=== PATIENT | male | born 2000 | race African-American/Black ===

== ENCOUNTER 2020-04-29 14:51 | Inpatient (IN) | payer OTHER, SELFPAY ==
[2020-04-29] VITALS (7 sets, daily range): BP systolic 137–146; BP diastolic 76–87; PULSE 86–102; RESP 16–20; TEMP 36.7–37.4; O2SAT 99–100; BMI 32.5
--- NOTE | ~2020-04-29 | XR_ITS ---
EXAMINATION: XR femur LT min 2V DATE: 04/29/2020 16:34 INDICATION: Left thigh wound and erythema and edema. TECHNIQUE: 2 views of left femur on 4 radiographs were obtained. COMPARISON: None. FINDINGS: Bone alignment is normal. No fracture. Joint spaces are well maintained. IMPRESSION: 1. Normal left femur. Reviewed, dictated and finalized at location B. IMPRESSION: 1. Normal left femur.
[2020-04-29] MEDS: TETANUS,DIPHTHERIA,AC PERTUSSIS ADULT (0.5 ML) BOOSTRIX IM (16:16)
--- NOTE | 2020-04-29 16:41 | ED.SKABFB ---
HPI - Skin/Abscess/Foreign Bdy General Chief complaint: Skin/Abscess/Foreign Body <CHAPINCITO Galindo Last Filed: 04/29/20 18:56> Stated complaint: bite to leg <CHAPINCITO Galindo Last Filed: 04/29/20 18:56> Time Seen by Provider: 04/29/20 15:51 <CHAPINCITO Galindo Last Filed: 04/29/20 18:56> Source: patient <CHAPINCITO Galindo Last Filed: 04/29/20 18:56> Mode of arrival: ambulatory <CHAPINCITO Galindo Last Filed: 04/29/20 18:56> Limitations: no limitations <CHAPINCITO Galindo Last Filed: 04/29/20 18:56> History of Present Illness HPI narrative: This is a 20 year old male that presents to the ER for left thigh wound for 4 days. Reports he noted a possible bite to the area on Saturday. Reports he went to the urgent care and was started on Doxycycline. Has been taking this as prescribed with little relief. Reports the area of redness continues to worsen to the thigh. He is unsure of his last tetanus vaccine. Also reports fevers. <CHAPINCITO Galindo Last Filed: 04/29/20 18:56> Related Data Home medications: Home Medications Medication Instructions Recorded Confirmed doxycycline hyclate 04/29/20 triamcinolone acetonide TOPICAL 04/29/20 <CHAPINCITO Galindo Last Filed: 04/29/20 18:56> Allergies/Adverse reactions: Allergies Allergy/AdvReac Type Severity Reaction Status Date / Time No Known Allergies Allergy Verified 04/29/20 16:20 <CHAPINCITO Galindo Last Filed: 04/29/20 18:56> Review of Systems Review of Systems: Narrative: CONSTITUTIONAL: Reports fever SKIN: Reports erythema and edema <CHAPINCITO Galindo Last Filed: 04/29/20 18:56> All systems reviewed & are unremarkable except as noted in HPI and below <CHAPINCITO Galindo Last Filed: 04/29/20 18:56> [facility] Past Medical History Medical History: Medical History (Updated 04/29/20 @ 18:56 by Emily Parekh PA-C) No active medical problems <Emily Parekh PA-C - Last Filed: 04/29/20 18:56> Social History Social History: Social History (Updated 04/29/20 @ 16:46 by Emily Parekh PA-C) Substance use: never Gender identity (if verbalized by the patient): Male <Emily Parekh PA-C - Last Filed: 04/29/20 18:56> Exam Narrative: Exam Narrative: GENERAL: Well-appearing, well-nourished, and in no acute distress. HEAD: Normocephalic, atraumatic. EYES: EOMI. EXTREMITIES: Normal range of motion. Left inner thigh with large area of erythema and edema with small central area of ecchymosis. No fluctuance to suggest abscess SKIN: Warm, dry, no rash. NEURO: No focal deficits. Alert and oriented x3. PSYCH: Normal mood and affect <Emily Parekh PA-C - Last Filed: 04/29/20 18:56> Course E COMMERCE MANAGER/PA Physician Supervision For this encounter, I have reviewed the PA documentation, treatment plan and medical decision making: And I have had [id number] time with the patient. On exam patient has large area of erythema over the left thigh. Had extensive conversation with patient and family regarding for admission all questions answered. Patient in agreement at this time <Declan Luz DO - Last Filed: 04/29/20 18:21> Consultations Consultation #1: Spoke with hospitalist about patient and work-up who accepts admission <Emily Parekh PA-C - Last Filed: 04/29/20 18:56> Date: 04/29/20 <Emily Parekh PA-C - Last Filed: 04/29/20 18:56> Time: 18:56 <Emily Parekh PA-C - Last Filed: 04/29/20 18:56> Vital Signs Vital signs: Vital Signs Temperature 99.2 F 04/29/20 15:11 Pulse Rate 92 04/29/20 15:11 Respiratory Rate 16 04/29/20 15:11 Blood Pressure 146/85 H 04/29/20 15:11 Pulse Oximetry 100 04/29/20 15:11 Temperature 99.4 F 04/29/20 17:54 Pulse Rate 102 H 04/29/20 17:54 Respiratory Rate 20 04/29/20 17:54 Blood Pressure 143/78 H 04/29/20 17:54 Pulse Oximetry 100 04/29
[2020-04-29 16:49] LABS: Basophils Absolute Auto 0.1 K/mm3 (0.0-0.1); Basophils Percent Auto 0.4 % (0.2-1.2); Eosinophils Absolute Auto 0.3 K/mm3 (0-0.3); Eosinophils Percent Auto 2.4 % (0-4.4); Hematocrit 42.4 % (42.0-52.0); Immature Granulocyte Absolute 0.03 K/mm3 (0.00-0.031); Immature Granulocyte Percent A 0.3 % (0-0.5); Lymphocytes Percent Auto 15.9 % (18.3-44.2); Mean Corpuscular Hemoglobin 29.7 pg (26-34); Mean Corpuscular Volume 89.8 fl (80-100); Mean Platelet Volume 9.4 fl (7.4-10.4); Monocytes Absolute Auto 1.1 K/mm3 (0.1-0.6); Monocytes Percent Auto 9.4 % (2.6-8.5); Neutrophils Absolute Auto 8.1 K/mm3 (1.3-6.7); Neutrophils Percent Auto 71.6 % (45.5-73.1); Platelet Count Result 308 k/mm3 (150-375); Red Blood Count 4.72 M/mm3 (4.6-6.20); Red Cell Distribution Width 11.9 % (11.5-14.5); White Blood Count 11.3 K/mm3 (4.5-10.0)
[2020-04-29 17:03] LABS: Anion Gap 7 mmol/L (8-16); Blood Urea Nitrogen 11 mg/dL (9-20); CRP 8.1 mg/dL (<1.0); Calcium 9.3 mg/dL (8.4-10.2); Carbon Dioxide 29 mmol/L (22-30); Chloride 100 mmol/L (98-107); Estimated CRCL calculation 161 ml/min; Estimated Glomerular Filt Rate > 60; Glucose 93 mg/dL (75-110); Potassium 4.3 mmol/L (3.4-5.0); Sodium 136 mmol/L (137-145)
[2020-04-29 17:15] LABS: Erythrocyte Sedimentation Rate 29 mm/hr (0-20)
--- NOTE | 2020-04-29 18:02 | PC.NURSE ---
[id number] area of redness with 2x3cm black area noted in the middle of the lesion. Wound area is firm, tender, and hot to touch. Wound outlined at this time.
[2020-04-29 18:07] LABS: Lactic Acid Reflex 0.9 mmol/L (0.7-2.1)
[2020-04-29] MEDS: IBUPROFEN 600 MG TABLET PO (18:26)
--- NOTE | 2020-04-29 20:20 | ADMGEN ---
This patient, Kaleb Almaguer, was admitted to 3 [facility] Surg Room 300-01. Patient/family oriented to hospital policies and general routines including ID bracelet, bed and alarms, visiting hours, pain management, procedures, bathroom and other care routines, personal items, smoking policy, room service/diet, and visiting hours. Valuables list has been completed. Information on how to activate the Rapid Response Team has been discussed. Patient/Family are encouraged to report perceived risks to care and to ask questions if they do not understand what they are told or what they should do.
[2020-04-30 05:54] VITALS: BP 133/77; PULSE 83; RESP 20; TEMP 36.6; O2SAT 100
[2020-04-30 08:00] VITALS: PULSE 83; RESP 20; O2SAT 100
[2020-04-30 09:00] LABS: Basophils Absolute Auto 0.1 K/mm3 (0.0-0.1); Basophils Percent Auto 0.5 % (0.2-1.2); Eosinophils Absolute Auto 0.3 K/mm3 (0-0.3); Eosinophils Percent Auto 2.4 % (0-4.4); Hematocrit 39.7 % (42.0-52.0); Hemoglobin 12.9 g/dL (14.0-18.0); Immature Granulocyte Absolute 0.07 K/mm3 (0.00-0.031); Immature Granulocyte Percent A 0.6 % (0-0.5); Lymphocytes Absolute Auto 1.54 K/mm3 (0.9-3.2); Mean Corpuscular HGB Conc 32.5 g/dl (32-36); Mean Corpuscular Hemoglobin 28.9 pg (26-34); Mean Platelet Volume 9.5 fl (7.4-10.4); Monocytes Absolute Auto 1.2 K/mm3 (0.1-0.6); Monocytes Percent Auto 10.1 % (2.6-8.5); Neutrophils Absolute Auto 8.7 K/mm3 (1.3-6.7); Neutrophils Percent Auto 73.4 % (45.5-73.1); Platelet Count Result 312 k/mm3 (150-375); Red Blood Count 4.46 M/mm3 (4.6-6.20); White Blood Count 11.9 K/mm3 (4.5-10.0)
[2020-04-30 09:32] LABS: CRP 12.8 mg/dL (<1.0)
[2020-04-30] MEDS: THERAPEUTIC MULTIVITAMINS/MINERALS TAB (*BKC) 1 TABLET PO (09:33)
--- NOTE | 2020-04-30 10:32 | PM.IMHP ---
H&P: HPI History of Present Illness Date/Time: 04/30/20 10:32 Chief complaint: Cellulitis Narrative: Kaleb Almaguer is a healthy 20 y.o. male with no significant past medical history who presented to the emergency department for the evaluation of a wound on his left medial thigh. He developed left lower extremity pain and noticed a dark black spot with surrounding erythema Saturday. He was evaluated at an Urgent Care on Saturday and started on doxycycline. He reports that his pain worsened and erythema continued started to expand despite antibiotic therapy. He notes that he found a small brown spider in his bed approximately one week ago. He lives in the [facility]. He denies systemic symptoms including malaise, nausea, vomiting, fevers, chills, weakness, diffuse myalgias, and lightheadedness. He denies chest pain and dyspnea. He denies diarrhea and constipation. He denies headaches. He has no other concerns. Review of Systems Review of Systems: All systems reviewed & are unremarkable except as noted in HPI and below PMFSH Past Medical History Medical History No active medical problems Family History Family History (Updated 04/30/20 @ 10:46 by Vanda Gallegos PA-C) Father Hypertension Social History Social History (Updated 04/30/20 @ 10:48 by Vanda Gallegos PA-C) Social History: Mr. Almaguer is a 20 y.o. male. He lives at home. He works at [employer]. He reports occasional social alcohol use with a 2 drinks once every 2 weeks. He denies tobacco and illicit substance use. He wishes to be a full code. He designates his mother, Genny Castaneda, as his surrogate decision maker. Smoking status: Never smoker Alcohol intake: current Drinks per week: 2 Substance use: never Living arrangements: alone Occupation/Education: occupation Gender identity (if verbalized by the patient): Male Spiritual care concerns: No Meds Home Medications and Allergies Home Medications Medication Instructions Recorded Confirmed Type doxycycline hyclate 100 mg PO Q12H 04/29/20 04/29/20 History [id number] K-lycop 1 tablet PO DAILY 04/29/20 04/30/20 History [Men's Multivitamin] triamcinolone acetonide 1 applic TOPICAL Q6-8H 04/29/20 04/29/20 History Allergies Allergy/AdvReac Type Severity Reaction Status Date / Time No Known Allergies Allergy Verified 04/29/20 16:20 Vital Signs Vital Signs - 24 hr 04/29/20 15:11 04/29/20 17:54 04/29/20 18:56 Temperature 99.2 F 99.4 F 99.4 F Pulse Rate 92 102 H Respiratory Rate 16 20 Blood Pressure 146/85 H 143/78 H Pulse Oximetry 100 100 04/29/20 19:03 04/29/20 19:54 04/29/20 20:05 Temperature 98.4 F 98.1 F 98.3 F Pulse Rate 95 91 99 Respiratory Rate 18 20 20 Blood Pressure 139/87 139/81 143/86 H Pulse Oximetry 100 99 100 04/29/20 22:00 04/30/20 05:54 Temperature 98.2 F 97.8 F Pulse Rate 86 83 Respiratory Rate 20 20 Blood Pressure 137/76 133/77 Pulse Oximetry 100 100 Exam Narrative: Exam Narrative: General: Very pleasant and cooperative, well-developed, obese 20 y.o. male lying in the semi-recumbent position in bed in no acute distress. HEENT: Normocephalic and atraumatic. Sclera anicteric. Conjunctivae and lids normal. PERRL. EOMI. Mucous membranes moist. Posterior pharynx without erythema or exudate. Neck: Supple. Cardiac: Regular rate and rhythm. S1 and S2 normal. Lungs: Lungs are clear to auscultation bilaterally. Abdomen: Bowel sounds are normoactive. Abdomen is soft, non-distended, and non-tender. Extremities: No lower extremity edema. No calf tenderness. Dorsalis pedis and posterior tibial pulses are 2+ and symmetric. Neurological: Alert. Exam is non-focal to casual conversation and he is moving all extremities well. Speech is clear. Skin: Warm and dry. 1x2cm necrotic lesion with [id number] of surrounding erythema and 9.5x7.5cm of induration. The wound is tender to touch with calor.
--- NOTE | 2020-04-30 13:07 | PM.CNGS ---
Assessment and Plan Assessment and plan (1) Spider bite: Code(s): T63.301A - Toxic effect of unspecified spider venom, accidental (unintentional), initial encounter Status: Acute Assessment and Plan: Central area of wound appears to have some ecchymosis and possible early skin necrosis. He may eventually require surgical debridement of this area. Will continue IV antibiotics at this time and reassess wound in the morning. Who be placed NPO after midnight just in case this needs to be done in the operating room. I may be able to debride the wound at the bedside to gain adequate control of the infection. (2) Cellulitis: Qualifiers: Laterality: left Site of cellulitis: extremity Site of cellulitis of extremity: lower extremity Qualified Code(s): L03.116 - Cellulitis of left lower limb Code(s): L03.90 - Cellulitis, unspecified Status: Acute Assessment and Plan: On broad-spectrum antibiotics History of Present Illness Consult details Consult date: 04/30/20 Requesting physician: Vanda Gallegos PA-C Narrative: Kaleb is a 20-year-old male who presented to the emergency department with complaints of a wound on his left inner thigh. He thinks he was bit by a spider and has had progressively worsening redness and pain in this region. Was placed on oral doxycycline about 3 or 4 days ago, he has noticed progressive worsening despite this. He was admitted yesterday through the emergency department for further treatment. He was placed on broad-spectrum IV antibiotics. He has not noticed any significant improvement since being admitted. Review of Systems Review of Systems: All systems reviewed & are unremarkable except as noted in HPI and below Constitutional: Constitutional: Reports as per HPI Eyes: Eyes: Denies change in vision ENT: Denies hearing loss, Denies neck pain and Denies sore throat Cardiovascular: Cardiovascular: Denies chest pain and Denies dyspnea Respiratory: Respiratory: Denies cough, Denies dyspnea and Denies wheezing Genitourinary: Genitourinary: Denies hematuria and Denies dysuria Musculoskeletal: Musculoskeletal: Denies arthralgias, Denies joint swelling and Denies neck pain Integumentary/Breasts: Skin/Breast: Reports as per HPI Allergic/Immunologic: Allergic/Immunologic: Denies wheezing PMFSH Past Medical History Medical History No active medical problems Family History Family History Father Hypertension Social History Social History Social History: Mr. Almaguer is a 20 y.o. male. He lives at home. He works at [employer]. He reports occasional social alcohol use with a 2 drinks once every 2 weeks. He denies tobacco and illicit substance use. He wishes to be a full code. He designates his mother, Genny Castaneda, as his surrogate decision maker. Smoking status: Never smoker Alcohol intake: current Drinks per week: 2 Substance use: never Living arrangements: alone Occupation/Education: occupation Gender identity (if verbalized by the patient): Male Spiritual care concerns: No Meds Home Medications and Allergies Home Medications Medication Instructions Recorded Confirmed Type doxycycline hyclate 100 mg PO Q12H 04/29/20 04/29/20 History [id number]-rzy-[id number]-vit K-lycop 1 tablet PO DAILY 04/29/20 04/30/20 History [Men's Multivitamin] triamcinolone acetonide 1 applic TOPICAL Q6-8H 04/29/20 04/29/20 History Allergies Allergy/AdvReac Type Severity Reaction Status Date / Time No Known Allergies Allergy Verified 04/29/20 16:20 Vital Signs Vital Signs - 24 hr 04/29/20 15:11 04/29/20 17:54 04/29/20 18:56 Temperature 37.3 C 37.4 C 37.4 C Pulse Rate 92 102 H Respiratory Rate 16 20 Blood Pressure 146/85 H 143/78 H Pulse Oximetry 100 1
[2020-04-30 14:00] VITALS: BP 136/76; PULSE 91; RESP 20; TEMP 37.1; O2SAT 100
[2020-04-30] MEDS: ENOXAPARIN 40 MG/0.4 ML SYRINGE SUB-Q (21:20)
[2020-04-30 22:00] VITALS: BP 137/70; PULSE 87; RESP 20; TEMP 36.9; O2SAT 100
[2020-05-01 06:00] VITALS: BP 125/54; PULSE 100; RESP 20; TEMP 36.7; O2SAT 100
[2020-05-01 07:04] LABS: Basophils Absolute Auto 0.1 K/mm3 (0.0-0.1); Basophils Percent Auto 0.5 % (0.2-1.2); Eosinophils Absolute Auto 0.4 K/mm3 (0-0.3); Eosinophils Percent Auto 3.1 % (0-4.4); Hematocrit 39.7 % (42.0-52.0); Immature Granulocyte Absolute 0.05 K/mm3 (0.00-0.031); Immature Granulocyte Percent A 0.4 % (0-0.5); Lymphocytes Absolute Auto 2.22 K/mm3 (0.9-3.2); Lymphocytes Percent Auto 18.3 % (18.3-44.2); Mean Corpuscular HGB Conc 32.7 g/dl (32-36); Mean Corpuscular Hemoglobin 29.1 pg (26-34); Mean Corpuscular Volume 88.8 fl (80-100); Mean Platelet Volume 9.7 fl (7.4-10.4); Monocytes Absolute Auto 1.4 K/mm3 (0.1-0.6); Monocytes Percent Auto 11.3 % (2.6-8.5); Neutrophils Absolute Auto 8.1 K/mm3 (1.3-6.7); Neutrophils Percent Auto 66.4 % (45.5-73.1); Platelet Count Result 336 k/mm3 (150-375); Red Blood Count 4.47 M/mm3 (4.6-6.20); Red Cell Distribution Width 11.8 % (11.5-14.5); White Blood Count 12.1 K/mm3 (4.5-10.0)
[2020-05-01 07:48] LABS: CRP 8.7 mg/dL (<1.0); Creatine Kinase 72 U/L (55-170)
[2020-05-01 08:00] VITALS: PULSE 100; RESP 20; O2SAT 100
[2020-05-01] MEDS: THERAPEUTIC MULTIVITAMINS/MINERALS TAB (*BKC) 1 TABLET PO (08:06)
--- NOTE | 2020-05-01 10:09 | PM.PNGS ---
Progress Note: A&P Assessment and Plan (1) Spider bite: Code(s): T63.301A - Toxic effect of unspecified spider venom, accidental (unintentional), initial encounter Status: Acute Assessment and Plan: No clear necrosis or abscess. WBC unchanged while on IV antibiotics. Will give one more day to monitor for improvement. May need to debride if redness and WBC not improving. (2) Cellulitis: Qualifiers: Laterality: left Site of cellulitis: extremity Site of cellulitis of extremity: lower extremity Qualified Code(s): L03.116 - Cellulitis of left lower limb Code(s): L03.90 - Cellulitis, unspecified Status: Acute Subjective Subjective Date/Time Seen: 05/01/20 10:09 Pain improving. No fevers. Able to use leg without any difficulties. Redness has not changed much. Exam Skin: Other: Large area of erythema unchanged. Ecchymosis in central portion measuring 2cm. Objective Data Vital Signs Vital Signs: Vital Signs - 24 hr 04/30/20 14:00 04/30/20 22:00 05/01/20 06:00 Temperature 37.1 C 36.9 C 36.7 C Pulse Rate 91 87 100 Respiratory Rate 20 20 20 Blood Pressure 136/76 137/70 125/54 L Pulse Oximetry 100 100 100 05/01/20 08:00 Temperature Pulse Rate 100 Respiratory Rate 20 Blood Pressure Pulse Oximetry 100 Intake/Output Intake/Output: Intake & Output 04/28/20 04/29/20 04/30/20 05/01/20 23:59 23:59 23:59 23:59 Intake Total 50 2000 1050 Output Total 1300 1295 Balance 50 700 -245 Meds/Results Medications: Active Medications Generic Name Dose Route Start Last Admin Trade Name Freq PRN Reason Stop Dose Admin Acetaminophen 650 mg 04/30/20 11:11 Tylenol Tablet PO Q4H PRN Mild Pain (1-3) or Fever Enoxaparin Sodium 40 mg 04/30/20 21:00 04/30/20 21:20 Lovenox SUB-Q 40 mg HS JOANNE Administration Vancomycin HCl 1,500 mg in 500 mls @ 333.333 mls/hr 04/30/20 11:00 05/01/20 02:00 Vancomycin 1,500 Mg/D5w 500 Ml IVPB Infused Q12H JOANNE Infusion Multivitamins/Calcium 1 tablet 08/29/20 09:00 05/01/20 08:06 Therapeutic Multivitamins/Minerals PO 1 tablet DAILY JOANNE Administration Radiology Results: ITS Impressions Femur X-Ray 04/29/20 16:39 IMPRESSION: 1. Normal left femur. Labs Labs: Laboratory Results - last 24 hr 05/01/20 05/01/20 05:50 05:50 WBC 12.1 H RBC 4.47 L Hgb 13.0 L Hct 39.7 L MCV 88.8 MCH 29.1 MCHC 32.7 RDW 11.8 Plt Count 336 MPV 9.7 Immature Gran % (Auto) 0.4 Neut % (Auto) 66.4 Lymph % (Auto) 18.3 [place] % (Auto) 11.3 H Eos % (Auto) 3.1 Baso % (Auto) 0.5 Lymph # (Auto) 2.22 [place] # (Auto) 1.4 H Eos # (Auto) 0.4 H Baso # (Auto) 0.1 Abs Immat Gran (auto) 0.05 H Absolute Neuts (auto) 8.1 H Absolute Nucleated RBC 0.0 Nucleated RBC % 0.0 Total Creatine Kinase 72 C-Reactive Protein 8.7 H Quality VTE Prophylaxis VTE prophylaxis: pharmacologic ordered (Lovenox SQ)
[2020-05-01 14:00] VITALS: BP 129/71; PULSE 81; RESP 16; TEMP 36.6; O2SAT 100
--- NOTE | 2020-05-01 14:02 | PM.IMPN ---
Progress Note: A&P Assessment and Plan (1) Spider bite: Code(s): T63.301A - Toxic effect of unspecified spider venom, accidental (unintentional), initial encounter Status: Acute Assessment and Plan: I suspect that his wound is secondary to a brown recluse bite as the center is dusky and he found a small brown spider in his bed. He may have superimposed cellulitis although it is possible that this is a reaction to the venom. Tetanus was updated in the ED. He did not respond to doxycycline or cefazolin. IV vancomycin was initiated yesterday and he does feel that his pain is better. CK was normal. He does not have evidence of systemic toxicity. There is no overt evidence of abscess at this time. General surgery is on board and input is appreciated. He may require debridement. Continue present management. (2) Cellulitis: Qualifiers: Laterality: left Site of cellulitis: extremity Site of cellulitis of extremity: lower extremity Qualified Code(s): L03.116 - Cellulitis of left lower limb Code(s): L03.90 - Cellulitis, unspecified Status: Acute Assessment and Plan: As above. Continue IV vancomycin. WBC is mildly elevated to 12.1 from 11.9. CRP is improving. He has no systemic symptoms. Continue to monitor. Subjective Date/time seen: 05/01/20 14:03 Interval history: Mr. Almaguer is seen in follow-up for spider bite with cellulitis. His pain has improved and he feels like the area is softer. He denies subjective fever and chills. He reports erythema is no worse. He denies chest pain, palpitations, and dypsnea. He denies nausea, vomiting, weakness, and malaise. His appetite is good. Review of Systems Review of Systems: All systems reviewed & are unremarkable except as noted in HPI and below Exam Narrative: Exam Narrative: General: Well-developed and obese 20 y.o. male lying in bed in no acute distress. HEENT: Normocephalic and atraumatic. Neck: Supple. Cardiac: Regular rate and rhythm. S1 and S2 normal. Lungs: Lungs are clear to auscultation bilaterally. Abdomen: Bowel sounds are normoactive. Abdomen is soft, non-distended, and non-tender. Extremities: No lower extremity edema or calf tenderness. Neurological: Alert. Exam is non-focal to casual conversation. Speech is clear. Motor and sensory function intact to distal foot of affected extremity. Skin: Warm and dry. Wound is softer today, there is a 1x2cm dark, dusky lesion centrally with [id number] of surrounding erythema and 9.5x7.5cm of induration which is softer today. Minimal tenderness to palpation. Psychiatric: Judgment and insight intact. Pleasant mood and appropriate affect. Objective Data Vital Signs Vital Signs: Vital Signs - 24 hr 04/30/20 22:00 05/01/20 06:00 05/01/20 08:00 Temperature 98.5 F 98.1 F Pulse Rate 87 100 100 Respiratory Rate 20 20 20 Blood Pressure 137/70 125/54 L Pulse Oximetry 100 100 100 Intake/Output Intake/Output: Intake & Output 04/28/20 04/29/20 04/30/20 05/01/20 23:59 23:59 23:59 23:59 Intake Total 50 2000 1290 Output Total 1300 1295 Balance 50 700 -5 Meds/Results Medications: Active Medications Generic Name Dose Route Start Last Admin Trade Name Thomasq PRN Reason Stop Dose Admin Acetaminophen 650 mg 04/30/20 11:11 Tylenol Tablet PO Q4H PRN Mild Pain (1-3) or Fever Enoxaparin Sodium 40 mg 04/30/20 21:00 04/30/20 21:20 Lovenox SUB-Q 40 mg HS JOANNE Administration Vancomycin HCl 1,500 mg in 500 mls @ 333.333 mls/hr 04/30/20 11:00 05/01/20 10:53 Vancomycin 1,500 Mg/D5w 500 Ml IVPB 333 mls/hr Q12H JOANNE Administration Multivitamins/Calcium 1 tablet 04/30/20 09:00 05/01/20 08:06 Therapeutic Multivitamins/Minerals PO 1 tablet DAILY JOANNE Administration Radiology Results: ITS Impressions Femur X-Ray 04/29/20 16:39 IMPRESSION: 1. Normal left femur. Labs Labs: Laboratory Results - last 24 hr 05/01/20 08/3
[2020-05-01] MEDS: ENOXAPARIN 40 MG/0.4 ML SYRINGE SUB-Q (20:20)
[2020-05-01 22:19] VITALS: BP 137/70; PULSE 85; RESP 20; TEMP 36.8; O2SAT 100
[2020-05-01 23:08] LABS: Vancomycin Trough 6.8 ug/mL (10.0-20.0)
[2020-05-02 06:00] VITALS: BP 126/75; PULSE 76; RESP 20; TEMP 36.3; O2SAT 100
[2020-05-02 06:42] LABS: Basophils Absolute Auto 0.1 K/mm3 (0.0-0.1); Basophils Percent Auto 0.6 % (0.2-1.2); Eosinophils Absolute Auto 0.4 K/mm3 (0-0.3); Eosinophils Percent Auto 4.7 % (0-4.4); Hemoglobin 13.4 g/dL (14.0-18.0); Immature Granulocyte Absolute 0.07 K/mm3 (0.00-0.031); Immature Granulocyte Percent A 0.8 % (0-0.5); Lymphocytes Absolute Auto 2.07 K/mm3 (0.9-3.2); Lymphocytes Percent Auto 23.3 % (18.3-44.2); Mean Corpuscular HGB Conc 32.7 g/dl (32-36); Mean Corpuscular Hemoglobin 28.9 pg (26-34); Mean Corpuscular Volume 88.4 fl (80-100); Mean Platelet Volume 9.6 fl (7.4-10.4); Monocytes Percent Auto 10.7 % (2.6-8.5); Neutrophils Absolute Auto 5.3 K/mm3 (1.3-6.7); Neutrophils Percent Auto 59.9 % (45.5-73.1); Platelet Count Result 354 k/mm3 (150-375); Red Blood Count 4.64 M/mm3 (4.6-6.20); Red Cell Distribution Width 11.8 % (11.5-14.5); White Blood Count 8.9 K/mm3 (4.5-10.0)
[2020-05-02 06:55] LABS: Estimated CRCL calculation 161 ml/min; Estimated Glomerular Filt Rate > 60
[2020-05-02 06:59] LABS: Anion Gap 8 mmol/L (8-16); Blood Urea Nitrogen 9 mg/dL (9-20); Calcium 9.1 mg/dL (8.4-10.2); Carbon Dioxide 26 mmol/L (22-30); Chloride 101 mmol/L (98-107); Estimated CRCL calculation 161 ml/min; Estimated Glomerular Filt Rate > 60; Glucose 94 mg/dL (75-110); Potassium 4.2 mmol/L (3.4-5.0); Sodium 135 mmol/L (137-145)
[2020-05-02] MEDS: THERAPEUTIC MULTIVITAMINS/MINERALS TAB (*BKC) 1 TABLET PO (08:29)
[2020-05-02] MEDS: LIDOCAINE HCL 1% LOCAL INJ 10 ML VIAL INFILTRATE (10:20)
--- NOTE | 2020-05-02 11:15 | PM.PNGS ---
Progress Note: A&P Assessment and Plan (1) Spider bite: Code(s): T63.301A - Toxic effect of unspecified spider venom, accidental (unintentional), initial encounter Status: Acute Assessment and Plan: Necrotic area of skin now well demarcated. Will increasing area of cellulitis extending, I have recommended Debridement of left inner thigh wound. Discussed procedure, risks, benefits, and alternatives. Questions answered. Will do procedure at bedside under local anesthetic this AM. (2) Cellulitis: Qualifiers: Laterality: left Site of cellulitis: extremity Site of cellulitis of extremity: lower extremity Qualified Code(s): L03.116 - Cellulitis of left lower limb Code(s): L03.90 - Cellulitis, unspecified Status: Acute Subjective Subjective Date/Time Seen: 05/02/20 11:15 Pain about the same. Noticed more redness extending beyond the previous margins. Exam Skin: Other: Left inner thigh--Large area of erythema slightly increased. Necrosis in central portion measuring 2cm. Objective Data Vital Signs Vital Signs: Vital Signs - 24 hr 05/01/20 14:00 05/01/20 22:19 05/02/20 06:00 Temperature 36.6 C 36.8 C 36.3 C L Pulse Rate 81 85 76 Respiratory Rate 16 20 20 Blood Pressure 129/71 137/70 126/75 Pulse Oximetry 100 100 100 Intake/Output Intake/Output: Intake & Output 04/29/20 04/30/20 05/01/20 05/02/20 23:59 23:59 23:59 23:59 Intake Total 50 2000 2790 1290 Output Total 1300 2495 650 Balance 50 700 295 640 Meds/Results Medications: Active Medications Generic Name Dose Route Start Last Admin Trade Name Freq PRN Reason Stop Dose Admin Acetaminophen 650 mg 04/30/20 11:11 Tylenol Tablet PO Q4H PRN Mild Pain (1-3) or Fever Enoxaparin Sodium 40 mg 04/30/20 21:00 05/01/20 20:20 Lovenox SUB-Q 40 mg HS JOANNE Administration Vancomycin HCl 1,750 mg in 500 mls @ 250 mls/hr 05/02/20 11:00 05/02/20 10:59 Vancomycin 1,750 Mg/D5w 500 Ml IVPB 175 mls/hr Q12H JOANNE Administration Multivitamins/Calcium 1 tablet 04/30/20 09:00 05/02/20 08:29 Therapeutic Multivitamins/Minerals PO 1 tablet DAILY JOANNE Administration Radiology Results: ITS Impressions Femur X-Ray 04/29/20 16:39 IMPRESSION: 1. Normal left femur. Labs Labs: Laboratory Results - last 24 hr 05/01/20 05/02/20 05/02/20 22:13 06:09 06:09 WBC 8.9 RBC 4.64 Hgb 13.4 L Hct 41.0 L MCV 88.4 MCH 28.9 MCHC 32.7 RDW 11.8 Plt Count 354 MPV 9.6 Immature Gran % (Auto) 0.8 H Neut % (Auto) 59.9 Lymph % (Auto) 23.3 [place] % (Auto) 10.7 H Eos % (Auto) 4.7 H Baso % (Auto) 0.6 Lymph # (Auto) 2.07 [place] # (Auto) 1.0 H Eos # (Auto) 0.4 H Baso # (Auto) 0.1 Abs Immat Gran (auto) 0.07 H Absolute Neuts (auto) 5.3 Absolute Nucleated RBC 0.0 Nucleated RBC % 0.0 Sodium 135 L Potassium 4.2 Chloride 101 Carbon Dioxide 26 Anion Gap 8 BUN 9 Creatinine 0.80 Estim Creat Clear Calc 161 Estimated GFR > 60 Glucose 94 Calcium 9.1 C-Reactive Protein 6.0 H Vancomycin Trough 6.8 L 05/02/20 06:09 WBC RBC Hgb Hct MCV MCH MCHC RDW Plt Count MPV Immature Gran % (Auto) Neut % (Auto) Lymph % (Auto) [place] % (Auto) Eos % (Auto) Baso % (Auto) Lymph # (Auto) [place] # (Auto) Eos # (Auto) Baso # (Auto) Abs Immat Gran (auto) Absolute Neuts (auto) Absolute Nucleated RBC Nucleated RBC % Sodium Potassium Chloride Carbon Dioxide Anion Gap BUN Creatinine 0.80 Estim Creat Clear Calc 161 Estimated GFR > 60 Glucose Calcium C-Reactive Protein Vancomycin Trough Quality VTE Prophylaxis VTE prophylaxis: pharmacologic ordered (Lovenox SQ)
--- NOTE | 2020-05-02 11:18 | P.OP_ITS ---
Procedure Note - Detailed Date of procedure: 05/02/20 Pre-op diagnosis: Cellulitis, Spider Bite Left Thigh Post-op diagnosis: same Procedure performed: Sharp excisional debridement necrotic left thigh wound including skin and subcutaneous fat measuring 2 cm x 2 cm Description of procedure: * procedure as well as risks, benefits, and alternatives were discussed with the patient. Written consent was obtained and placed in chart prior to procedure. Patient was placed supine in a hospital bed. Time-out was done to confirm patient and procedure. His left inner thigh was prepped and draped in sterile fashion using Betadine prep. 1% lidocaine was infiltrated locally around the necrotic wound. The necrotic skin and subcutaneous fat was sharply excised using a 15 blade scalpel. Tissue was excised back to healthy bleeding normal appearing tissue. A culture was taken of the deep tissue to assess for any underlying infection. Pressure was applied, and hemostasis appeared adequate. 4 x 4 gauze and paper tape was then applied. Anesthesia: local (1% Lidocaine) Surgeon: Simon Brown DO Estimated blood loss (mL): 5 Packing: No Pathology: none sent Complications: No immediate complications Condition: stable Disposition: no change Findings: * The necrotic wound on the patient's left inner thigh was sharply debrided using a 15 blade scalpel. The necrotic tissue included skin and some subcutaneous fat. There was no evidence of purulence fluid deep to the wound. Deep tissue culture was taken to assess for any underlying bacterial infection. Will plan to continue wound care with silver gel and 4 x 4 gauze applied daily.
--- NOTE | 2020-05-02 13:26 | PM.IMPN ---
Progress Note: A&P Assessment and Plan (1) Spider bite: Code(s): T63.301A - Toxic effect of unspecified spider venom, accidental (unintentional), initial encounter Status: Acute Assessment and Plan: The patient found a small brown spider in his bed. He may have superimposed cellulitis vs reaction to the venom. Tetanus was updated in the ED. He did not respond to doxycycline or cefazolin. IV vancomycin was initiated 04/30. He does not have evidence of systemic toxicity. General surgery is on board and he underwent excisional debridement at bedside of the necrotic tissue which included skin and subcutaneous fat. There was no evidence of abscess. Deep tissue culture was obtained. He feels better at this time. Appreciate general surgery input. Await deep tissue culture results and continue wound care. (2) Cellulitis: Qualifiers: Laterality: left Site of cellulitis: extremity Site of cellulitis of extremity: lower extremity Qualified Code(s): L03.116 - Cellulitis of left lower limb Code(s): L03.90 - Cellulitis, unspecified Status: Acute Assessment and Plan: As above. Continue IV vancomycin. WBC has normalized to 8.9. CRP is 6.0. He has no systemic symptoms and he is afebrile. Continue to monitor. Subjective Date/time seen: 05/02/20 13:26 Interval history: Mr. Almaguer is seen in follow-up for spider bite with cellulitis. He notes pain/ROM is better following debridement but believes that this is because the area is still numb. He reports erythema is mildly worse. He denies subjective fever and chills. He denies nausea and vomiting. He denies chest pain and dyspnea. He denies calf pain and leg swelling. He is tolerating his diet well. Bowel function is regular with no constipation or diarrhea. Review of Systems Review of Systems: All systems reviewed & are unremarkable except as noted in HPI and below Exam Narrative: Exam Narrative: General: Very pleasant, well-developed, and obese 20 y.o. male lying in the semi-recumbent position in bed and in no acute distress. HEENT: Normocephalic and atraumatic. Neck: Supple. Cardiac: Regular rate and rhythm. S1 and S2 normal. Lungs: Lungs are clear to auscultation bilaterally. Abdomen: Abdomen soft, non-tender, and non-distended. Extremities: Lower extremities without edema or calf tenderness. Skin: Warm and dry. Erythema has extended very minimally (0.5cm) outside the prior border of demarcation. Dressing is in place following I&D and is c/d/i. Wound feels softer to palpation. Psychiatric: Judgment and insight intact. Pleasant mood and appropriate affect. Objective Data Vital Signs Vital Signs: Vital Signs - 24 hr 05/01/20 14:00 05/01/20 22:19 05/02/20 06:00 Temperature 97.8 F 98.3 F 97.4 F L Pulse Rate 81 85 76 Respiratory Rate 16 20 20 Blood Pressure 129/71 137/70 126/75 Pulse Oximetry 100 100 100 Intake/Output Intake/Output: Intake & Output 04/29/20 04/30/20 05/01/20 05/02/20 23:59 23:59 23:59 23:59 Intake Total 50 2000 2790 1290 Output Total 1300 2495 650 Balance 50 700 295 640 Meds/Results Medications: Active Medications Generic Name Dose Route Start Last Admin Trade Name Asa PRN Reason Stop Dose Admin Acetaminophen 650 mg 04/30/20 11:11 Tylenol Tablet PO Q4H PRN Mild Pain (1-3) or Fever Enoxaparin Sodium 40 mg 04/30/20 21:00 05/01/20 20:20 Lovenox SUB-Q 40 mg HS JOANNE Administration Vancomycin HCl 1,750 mg in 500 mls @ 250 mls/hr 05/02/20 11:00 05/02/20 10:59 Vancomycin 1,750 Mg/D5w 500 Ml IVPB 175 mls/hr Q12H JOANNE Administration Multivitamins/Calcium 1 tablet 04/30/20 09:00 05/02/20 08:29 Therapeutic Multivitamins/Minerals PO 1 tablet DAILY JOANNE Administration Radiology Results: ITS Impressions Femur X-Ray 04/29/20 16:39 IMPRESSION: 1. Normal left femur. Labs Labs: Laboratory Results - last 24 hr 05/01/20 05/02/20 08
[2020-05-02 14:00] VITALS: BP 123/65; PULSE 94; RESP 16; TEMP 36.7; O2SAT 96
[2020-05-02] MEDS: SILVERGEL (ELTA) 45 ML 1 APPLIC TOPICAL (17:25)
[2020-05-02] MEDS: ENOXAPARIN 40 MG/0.4 ML SYRINGE SUB-Q (21:11)
[2020-05-02 21:59] VITALS: BP 131/81; PULSE 84; RESP 18; TEMP 37.1; O2SAT 100
[2020-05-03 05:48] VITALS: BP 127/81; PULSE 69; RESP 18; TEMP 36.5; O2SAT 100
[2020-05-03 06:50] LABS: Basophils Absolute Auto 0.1 K/mm3 (0.0-0.1); Basophils Percent Auto 0.9 % (0.2-1.2); Eosinophils Absolute Auto 0.4 K/mm3 (0-0.3); Eosinophils Percent Auto 5.7 % (0-4.4); Hematocrit 41.3 % (42.0-52.0); Hemoglobin 13.5 g/dL (14.0-18.0); Immature Granulocyte Absolute 0.07 K/mm3 (0.00-0.031); Immature Granulocyte Percent A 0.9 % (0-0.5); Lymphocytes Absolute Auto 2.12 K/mm3 (0.9-3.2); Lymphocytes Percent Auto 27.2 % (18.3-44.2); Mean Corpuscular HGB Conc 32.7 g/dl (32-36); Mean Corpuscular Hemoglobin 29.1 pg (26-34); Mean Platelet Volume 9.7 fl (7.4-10.4); Monocytes Absolute Auto 0.8 K/mm3 (0.1-0.6); Monocytes Percent Auto 10.2 % (2.6-8.5); Neutrophils Absolute Auto 4.3 K/mm3 (1.3-6.7); Neutrophils Percent Auto 55.1 % (45.5-73.1); Platelet Count Result 351 k/mm3 (150-375); Red Blood Count 4.64 M/mm3 (4.6-6.20); Red Cell Distribution Width 11.9 % (11.5-14.5); White Blood Count 7.8 K/mm3 (4.5-10.0)
[2020-05-03 08:08] LABS: CRP 3.1 mg/dL (<1.0)
[2020-05-03] MEDS: SILVERGEL (ELTA) 45 ML 1 APPLIC TOPICAL (08:37)
[2020-05-03] MEDS: THERAPEUTIC MULTIVITAMINS/MINERALS TAB (*BKC) 1 TABLET PO (08:37)
--- NOTE | 2020-05-03 13:02 | PM.DS ---
DS: Admitting Diagnosis Admitting Diagnosis Admitting Diagnosis: Cellulitis, Spider Bite Left Thigh DS: Discharge Diagnosis Discharge Diagnosis (1) Spider bite: Code(s): T63.301A - Toxic effect of unspecified spider venom, accidental (unintentional), initial encounter Status: Acute Assessment and Plan: The patient found a small brown spider in his bed. He may have superimposed cellulitis vs reaction to the venom. Tetanus was updated in the ED. He did not respond to doxycycline outpatient or IV cefazolin initially on arrival. IV vancomycin was initiated 04/30 and he is tolerating well. He does not have evidence of systemic toxicity. General surgery , Dr. Stephanie asif is on board and he underwent excisional debridement yesterday of necrotic tissue and subcutaneous fat. No evidence of purulence. Deep tissue wound culture was taken and showed no growth or WBC seen. Continue Silver gel and 4x4 gauze applied daily. He feels better at this time and wondering when he can be discharged. I talked to Dr. Lorenzo who feels comfortable with him being discharged and I will send him home on Bactrim for 12 more days and probiotics. Will have him follow up with PCP in 1 week for further evaluation. The patient understands and agrees with the plan. All questions answered. (2) Cellulitis: Qualifiers: Laterality: left Site of cellulitis: extremity Site of cellulitis of extremity: lower extremity Qualified Code(s): L03.116 - Cellulitis of left lower limb Code(s): L03.90 - Cellulitis, unspecified Status: Acute Assessment and Plan: As above. Continue IV vancomycin. WBC has normalized to 7.8. CRP is 3.1, improved. He has no systemic symptoms and he is afebrile. DS: Summary Hospital Course Reason for hospitalization: Patient is a 20-year-old man with no chronic medical history, presents to the ER for evaluation of left medial thigh with wound that had increased redness, swelling, pain he for the last few days despite doxycycline orally from urgent care. There was concerns at this could have been a spider bite. Initial vitals Showed temperature of 99.2?, blood pressure 146/85, heart rate 92, respiratory rate 16, saturation 100% on room air. Initial labs showed leukocytosis 11,300, slight hyponatremia at 136. Elevated CRP at 8.1. X-ray femur was normal. The hospital and started on IV antibiotics with a surgical consultation. After few days IV Ancef did not seem to help and he was switched to IV vancomycin. Surgery ended up debriding his wound on 05/02/2020. The patient was feeling much better, CRP was going down, WBC normalized. Surgery re-evaluated the patient and felt he was stable for discharge. He was discharged on Bactrim to continue following up with his primary care provider and surgery evaluation in 2 weeks. Patient understands and agrees with the plan all questions answered. Status at Discharge Cognitive/behavioral status at discharge: Stable, improved. Time Spent with Patient Time attestation: Total time spent providing and/or coordinating discharge services: Time spent: Greater than 30 minutes Exam Narrative: Exam Narrative: General: 20-year-old man sitting up in bed on his phone. Appears comfortable. In no acute distress. Skin: No jaundice or cyanosis. Good skin turgor. Neck: Full range of motion. Supple. Respiratory: Lungs are clear to auscultation bilaterally. No bony chest wall tenderness. Cardiovascular: The heart has a regular rate and rhythm without murmur. Lower extremities: Left medial thigh with black marker line intact without signs of spreading erythema, or induration. Bandage in place to medial thigh with slight surrounding warmth and tenderness. No lower extremity edema. Distal pulses are easily palpated. No calf tenderness to palpation. Gastrointestinal: The abdomen is soft, nontender and nond
--- NOTE | 2020-05-03 13:04 | P.PNGS_ITS ---
Progress Note: A&P Assessment and Plan (1) Spider bite: Code(s): T63.301A - Toxic effect of unspecified spider venom, accidental (unintentional), initial encounter Status: Acute Assessment and Plan: * Continue daily dressing changes * Discharge home on oral antibiotics * Follow up for wound check in 2 weeks (2) Cellulitis: Qualifiers: Laterality: left Site of cellulitis: extremity Site of cellulitis of extremity: lower extremity Qualified Code(s): L03.116 - Cellulitis of left lower limb Code(s): L03.90 - Cellulitis, unspecified Status: Acute Subjective Subjective Date/Time Seen: 05/03/20 13:04 Doing well after wound debridement yesterday. Redness looks slightly improved. Pain controlled. Exam Skin: Other: 2cm x 2cm wound on left inner thigh with healthy granulation tissue. Surrounding skin healthy and viable. Erythema slightly improved. Objective Data Vital Signs Vital Signs: Vital Signs - 24 hr 05/02/20 14:00 05/02/20 21:59 05/03/20 05:48 Temperature 36.7 C 37.1 C 36.5 C Pulse Rate 94 84 69 Respiratory Rate 16 18 18 Blood Pressure 123/65 131/81 127/81 Pulse Oximetry 96 100 100 Intake/Output Intake/Output: Intake & Output 04/30/20 05/01/20 05/02/20 05/03/20 23:59 23:59 23:59 23:59 Intake Total 1999 2790 2800.5 990 Output Total 1300 2495 2050 Balance 700 295 750.5 990 Meds/Results Medications: Active Medications Generic Name Dose Route Start Last Admin Trade Name Thomasq PRN Reason Stop Dose Admin Acetaminophen 650 mg 04/30/20 11:11 Tylenol Tablet PO Q4H PRN Mild Pain (1-3) or Fever Enoxaparin Sodium 40 mg 04/30/20 21:00 05/02/20 21:11 Lovenox SUB-Q 40 mg HS JOANNE Administration Vancomycin HCl 1,750 mg in 500 mls @ 250 mls/hr 05/02/20 11:00 05/03/20 12:18 Vancomycin 1,750 Mg/D5w 500 Ml IVPB 150 mls/hr Q12H JOANNE Administration Multivitamins/Calcium 1 tablet 04/30/20 09:00 05/03/20 08:37 Therapeutic Multivitamins/Minerals PO 1 tablet DAILY JOANNE Administration Silver Nitrate 1 applic 05/02/20 09:00 05/03/20 08:37 Silvergel TOPICAL 1 applic DAILY JOANNE Administration Radiology Results: ITS Impressions Femur X-Ray 04/29/20 16:39 IMPRESSION: 1. Normal left femur. Labs Labs: Laboratory Results - last 24 hr 05/03/20 05/03/20 05:57 05:57 WBC 7.8 RBC 4.64 Hgb 13.5 L Hct 41.3 L MCV 89.0 MCH 29.1 MCHC 32.7 RDW 11.9 Plt Count 351 MPV 9.7 Immature Gran % (Auto) 0.9 H Neut % (Auto) 55.1 Lymph % (Auto) 27.2 [place] % (Auto) 10.2 H Eos % (Auto) 5.7 H Baso % (Auto) 0.9 Lymph # (Auto) 2.12 [place] # (Auto) 0.8 H Eos # (Auto) 0.4 H Baso # (Auto) 0.1 Abs Immat Gran (auto) 0.07 H Absolute Neuts (auto) 4.3 Absolute Nucleated RBC 0.0 Nucleated RBC % 0.0 C-Reactive Protein 3.1 H Quality VTE Prophylaxis VTE prophylaxis: pharmacologic ordered (Lovenox SQ)
[2020-05-03 14:00] VITALS: BP 138/86; PULSE 68; RESP 16; TEMP 36.8; O2SAT 98
--- NOTE | 2020-05-12 14:51 | PC.NURSE ---
Wound and Blood cx are negative.
== END 2020-05-03 16:05 | disposition home or self-care (01) | DRG 902 ==
LOC: ANHED 18:14 → ANH3MEDSUR 18:56
PROVIDERS: Physician Assistant; Admitting Provider Internal Medicine; Emergency Provider Emergency Medicine; Visit Provider Physician Assistant
DX: T63.301A Toxic effect of unspecified spider venom, accidental (unintentional), initial encounter (principal); L03.116 Cellulitis of left lower limb
CPT/HCPCS: 36415; 73552; 80048; 80202; 82550; 82565; 83605; 85025; 85652; 86140; 87040; 87070; 87205; 90471; 90715; 99285; A9270; J0690; J1650; J3370

== ENCOUNTER 2025-06-03 08:31 | Emergency (ER) | payer BC, SELFPAY ==
[2025-06-03 08:44] VITALS: BP 135/93; PULSE 86; RESP 16; TEMP 36.6; O2SAT 100
--- NOTE | 2025-06-03 09:33 | ED_ITS ---
HPI - Skin/Abscess/Foreign Bdy General Chief complaint: Skin/Abscess/Foreign Body Stated complaint: spot under arm thinks is inffected Time Seen by Provider: 06/03/25 09:15 Source: patient and RN notes reviewed Mode of arrival: ambulatory Limitations: no limitations History of Present Illness HPI narrative: 25-year-old male presents Express Care complaining of possible wound under his left armpit. Patient noticed it 2 days ago. Patient reports foul-smelling discharge coming from the wound. Patient has been doing warm compresses, antibiotic soap, and antibiotic ointment with no relief. Patient denies any s ignificant past medical history. Patient denies any history of diabetes or abscesses. Related Data Home Medications ?Medication ?Instructions ?Recorded ?Confirmed ?Last Taken ?Type cexhhijn-uuizmqjz-odqgd acid 400 1 tablet PO DAILY 05/23/20 Unknown History mcg-vit K 20 mcg-lycop 300 mcg tablet (Men's Multivitamin) Allergies Allergy/AdvReac Type Severity Reaction Status Date / Time No Known Allergies Allergy Verified 06/03/25 08:44 Review of Systems Review of Systems: CONSTITUTIONAL: Denies fever, chills, or sweats. EYES: Denies visual changes, redness, or discharge. ENT: Denies rhinorrhea, congestion, sore throat, or otalgia. CARDIOVASCULAR: Denies chest pain, palpitations, or edema. RESPIRATORY: Denies cough or dyspnea. GASTROINTESTINAL: Denies abdominal pain, nausea, vomiting, or diarrhea. GENITOURINARY: Denies dysuria or hematuria. SKIN: Denies rash or itching. Positive for wound. MUSCULOSKELETAL: Denies back pain, joint pain, or myalgia. NEUROLOGIC: Denies headache, numbness, or weakness. PSYCHIATRIC: Denies anxiety or depression. All other systems reviewed are negative, except as documented in HPI. [facility] Past Medical History Medical History No active medical problems Family History Family History Father Hypertension Social History Social History Social History: Mr. Almaguer is a 20 y.o. male. He lives at home. He works at [employer]. He reports occasional social alcohol use with a 2 drinks once every 2 weeks. He denies tobacco and illicit substance use. He wishes to be a full code. He designates his mother, Genny Castaneda, as his surrogate decision maker. Smoking status: Never smoker Alcohol intake: current Drinks per week: 2 Substance use: never Living arrangements: alone Occupation/Education: occupation Gender identity (if verbalized by the patient): Male Spiritual care concerns: No Comments At the time of my signature, I reviewed and agree with the nursing past medical, surgical, social, and family history. There is no relevant family history pertinent to the patient complaint. Exam Narrative: GENERAL: This is a well-nourished, well-developed adult, in no apparent distress . They are non ill-appearing, nontoxic appearing. HEAD: normocephalic, atraumatic. EYES: Sclera clear/white. Conjunctiva normal. Vision is grossly intact. Extraocular movements intact EARS: External ears normal,Hearing grossly intact. NOSE: External nose normal THROAT: Mucous membranes moist, NECK: Neck supple, non-tender without lymphadenopathy, masses or thyromegaly. CARDIOVASCULAR: Regular rate and rhythm RESPIRATORY: Respiratory rate normal, respiratory effort nonlabored, no respiratory distress SKIN: Left axilla: There is a abscess to the left axilla measuring approximately 2 cm x 2 cm. Is actively draining, with mucopurulent drainage. Drainage is foul smelling. It is fluctuance, no induration, it is tender to palpate. NEURO: awake, alert, and oriented to person, place and time. There were no obvious focal neurologic abnormalities. EXTREMITIES: No joint tenderness, effusion, or edema noted. Course Course Emergency Course: Portions of this record may have been created with voice recognition software Level of Care: Express Care Visit Vital Signs Vital signs: Vital Signs Temperature 98 F 06/03/25 08:44 Pulse Rate 86 06/03/25 08:44 Respiratory Rate 16 06/03/25 08:44 Blood Pressure 135/93 H 06/03/25 08:44 Pulse Oximetry 100 06/03/25 08:44 Temperature 98 F 06/03/25 08:44 Pulse Rate 86 06/03/25 08:44 Respiratory Rate 16 06/03/25 08:44 Blood Pressure 135/93 H 06/03/25 08:44 Pulse Oximetry 100 10/02/25 08:44 Reviewed MDM - Skin/Abscess/Foreign Bdy MDM Narrative Medical decision making narrative: Abscess was drained with manual expression. Abscess was actively draining, no indication for incision since it is draining was easily expressed with palpation. Wound culture obtained and pening. Will start patient on doxycycline. Gauze dressing applied to patient's wound. Advised patient if it stops draining or becomes more swollen that will likely need incision and drainage. Discussed the importance of warm compresses and daily dressing change s. Discussed physical exam findings. Advised supportive measures and signs/symptoms to go to the ER. Pt is appropriate for outpt treatment and f/u. Differential Diagnosis Differential diagnosis: Likely abscess of skin or subcutaneous tissue, cellulitis, insect bites and other (Hidradenitis suppurative ) Critical Care Time Critical Care Time Critical Care Time: No Discharge Plan Discharge Clinical Impression: Abscess of axilla, left Patient Disposition: Home Condition: Stable Instructions: Antibiotic Form, Abscess (ED) Additional Instructions: Wound culture was sent off and if it is resistant to treatment you will be contacted started on an appropriate antibiotic. DO NOT pick at the area. This will only make the area worse and drive infection deeper. Shower and wash with soapy water. Keep area clean and dry. Take all the antibiotics as prescribed. Please wear sunscreen for going to be outside while taking doxycycline. Make sure to keep a dressing in place especially while it is draining . Change dressing at least once daily or when visibly soiled Follow up with PCP in 3-5 If you developed worsening redness swelling, pain, fevers, nausea, vomiting, or any serious concerns please go to the your immediately. Patient Language: [place] Prescriptions: New doxycycline monohydrate 100 mg capsule 100 mg PO BID 7 Days Qty: 14 0RF No Action Men's Multivitamin 400-20-300 mcg Tablet 1 tablet PO DAILY silver 200 mcg/gram gel 1 applic TOPICAL DAILY Qty: 45 0RF Saccharomyces boulardii [Florastor] 250 mg capsule 250 mg PO BID 15 Days Qty: 30 0RF Rx Instructions: swallow whole Follow-up/Referrals: UNKNOWN,DOCTOR [Primary Care Provider] Time of Disposition: 09:30
== END 2025-06-03 09:40 | disposition home or self-care (01) ==
DX: L02.412 Cutaneous abscess of left axilla (principal)
CPT/HCPCS: 87070; 87077; 87186; 99213; G0463